=== PATIENT | female | born 1990 | race Caucasian/White ===

== ENCOUNTER → 2017-03-20 | Outpatient (CLI) | payer BC, OTHER ==
[~2017-03-20] MED LIST: FERR1TAB23 PO; FOLI1TAB7 PO; IBUP1CAP9 PO; INHALER INH; METH2.5T PO; NABU500T3 PO; POTA10TA32 PO; PRLSR20 PO; VNTHFA/IN INH
--- NOTE | 2017-03-20 16:02 | DIAGNOSTIC IMAGING REPORT ---
RIGHT HAND MIN 3 VIEWS ROUTINE CLINICAL HISTORY: Hand injury Right trauma. Pain. COMPARISON: None. DISCUSSION: The bones and joint spaces appear intact. There is no evidence of fracture, dislocation or bony disease. There is no evidence for soft tissue swelling. IMPRESSION: Negative study. Electronically signed by: Byron Kim M.D. 03/20/2017 4:01 PM Dictated Date/Time: 03/20/2017 4:00 PM
== END | disposition home or self-care (01) ==
LOC: C.RADPV 15:45
PROVIDERS: ATTEND Family Medicine
DX: S69.90XA Unspecified injury of unspecified wrist, hand and finger(s), initial encounter (principal); X58.XXXA Exposure to other specified factors, initial encounter